=== PATIENT | female | born 1955 | race Caucasian/White ===

== ENCOUNTER → 2016-08-26 | Outpatient (CLI) | payer BC ==
[~2016-08-26] MED LIST: CALTRATE 600 +1 TAB PO; MVI PO; TOPAMAX50 MG PO; [UNRECOGNIZED DRUG - OTHER] PO
== END ==
LOC: MC.RAD 09:15
DX: Z12.31 Encounter for screening mammogram for malignant neoplasm of breast (principal); N63 Unspecified lump in breast

== ENCOUNTER → 2016-08-27 | Outpatient (CLI) | payer BC | LOC: MC.RAD 08:00 | DX: D24.1 Benign neoplasm of right breast (principal) ==

== ENCOUNTER → 2017-03-10 | Outpatient (CLI) | payer BC | LOC: COL.RAD 10:58 | DX: M48.07 Spinal stenosis, lumbosacral region (principal); M43.9 Deforming dorsopathy, unspecified ==

== ENCOUNTER → 2017-09-22 | Outpatient (CLI) | payer BC | LOC: MC.RAD 09:48 | DX: Z12.31 Encounter for screening mammogram for malignant neoplasm of breast (principal) ==

== ENCOUNTER → 2018-11-05 | Outpatient (CLI) | payer BC | LOC: MC.RAD 11:11 | DX: Z12.31 Encounter for screening mammogram for malignant neoplasm of breast (principal); Z98.82 Breast implant status ==

== ENCOUNTER → 2020-01-31 | Outpatient (CLI) | payer BC | LOC: MC.RAD 12:45 | DX: Z12.31 Encounter for screening mammogram for malignant neoplasm of breast (principal); Z98.82 Breast implant status ==

== ENCOUNTER → 2021-02-15 | Outpatient (CLI) | payer MEDICARE ==
[~2021-02-15] MED LIST changes: +00186-0370-20 IH; +ASPIRIN E.C. 8181 MG PO; +B-12 500 MCG PO; +CRESTOR5 MG PO; +CYMBALTA 60MG60 MG PO; +DESYREL 100MG100 MG PO; +ESTRACE0.1 MG/GM VG; +FIORICET 325 MG1 TA1 PO; +FLOMAX 0.40.4 MG/CAP PO; +FLONASEALLERGY NS; +MASON NATURAL2000 IU PO; +NATURAL IRON65 MG PO; +NEURONTIN300 MG/CAP PO; +PEPCID 20MG TAB20 MG PO; +PROAIR HFA0.09 MG/AC IH; +SINGULAIR 110 MG/TAB PO; +TOPAMAX 100MG100 M1 PO; +UBRELVY50 MG PO; +VOLTAREN GEL 1%1 TU TP; +ZANAFLEX2 MG PO; +ZYRTEC 10MG10 MG PO
== END ==
LOC: MC.RAD 01-30 09:45
DX: Z12.31 Encounter for screening mammogram for malignant neoplasm of breast (principal); N63.20 Unspecified lump in the left breast, unspecified quadrant

== ENCOUNTER → 2021-02-21 | Outpatient (CLI) | payer MEDICARE | LOC: MC.RAD 14:00 | DX: N60.02 Solitary cyst of left breast (principal); N63.20 Unspecified lump in the left breast, unspecified quadrant ==

== ENCOUNTER 2021-05-07 14:43 | Outpatient (CLI) | payer MEDICARE ==
[~2021-05-07] VITALS: Ht 162.6 cm; Wt 55.9 kg
[~2021-05-07 14:43] MED LIST changes: -00186-0370-20 IH; -ASPIRIN E.C. 8181 MG PO; -B-12 500 MCG PO; -CRESTOR5 MG PO; -CYMBALTA 60MG60 MG PO; -DESYREL 100MG100 MG PO; -ESTRACE0.1 MG/GM VG; -FIORICET 325 MG1 TA1 PO; -FLOMAX 0.40.4 MG/CAP PO; -FLONASEALLERGY NS; -MASON NATURAL2000 IU PO; -NATURAL IRON65 MG PO; -NEURONTIN300 MG/CAP PO; -PEPCID 20MG TAB20 MG PO; -PROAIR HFA0.09 MG/AC IH; -SINGULAIR 110 MG/TAB PO; -TOPAMAX 100MG100 M1 PO; -UBRELVY50 MG PO; -VOLTAREN GEL 1%1 TU TP; -ZANAFLEX2 MG PO; -ZYRTEC 10MG10 MG PO
[2021-05-07 15:01] VITALS: BP 116/68; PULSE 75; TEMP 98
[2021-05-07] MEDS ORDERED: 00186-0370-20 IH (15:31)
[2021-05-07] MEDS ORDERED: NEURONTIN300 MG/CAP PO (15:32)
[2021-05-07] MEDS ORDERED: TOPAMAX 100MG100 M1 PO (15:33)
[2021-05-07] MEDS ORDERED: CYMBALTA 60MG60 MG PO (15:40)
[2021-05-07] MEDS ORDERED: SINGULAIR 110 MG/TAB PO (15:41)
[2021-05-07] MEDS ORDERED: B-12 500 MCG PO (15:42)
[2021-05-07] MEDS ORDERED: NATURAL IRON65 MG PO (15:42)
[2021-05-07] MEDS ORDERED: ZYRTEC 10MG10 MG PO (15:44)
[2021-05-07] MEDS ORDERED: ASPIRIN E.C. 8181 MG PO (15:45)
[2021-05-07] MEDS ORDERED: PEPCID 20MG TAB20 MG PO (15:46)
[2021-05-07] MEDS ORDERED: FLONASEALLERGY NS (15:46)
[2021-05-07] MEDS ORDERED: FLOMAX 0.40.4 MG/CAP PO (15:47)
[2021-05-07] MEDS ORDERED: ESTRACE0.1 MG/GM VG (15:48)
[2021-05-07] MEDS ORDERED: PROAIR HFA0.09 MG/AC IH (15:48)
[2021-05-07] MEDS ORDERED: VOLTAREN GEL 1%1 TU TP (15:49)
[2021-05-07] MEDS ORDERED: FIORICET 325 MG1 TA1 PO (15:49)
[2021-05-07] MEDS ORDERED: UBRELVY50 MG PO (15:50)
[2021-05-07] MEDS ORDERED: ZANAFLEX2 MG PO (15:50)
[2021-05-07] MEDS ORDERED: MASON NATURAL2000 IU PO (15:51)
[2021-05-07] MEDS ORDERED: CRESTOR5 MG PO (15:52)
[2021-05-07] MEDS ORDERED: DESYREL 100MG100 MG PO (15:52)
== END 2021-05-07 16:10 | disposition home or self-care (01) ==
LOC: EUO 14:43
DX: M81.0 Age-related osteoporosis without current pathological fracture (principal)
CPT/HCPCS: J3489

== ENCOUNTER 2022-01-10 20:02 | Inpatient (IN) | payer MEDICARE ==
[~2022-01-10] VITALS: Ht 162.6 cm; Wt 66.0 kg
[~2022-01-10 20:02] MED LIST changes: +00186-0370-20 IH; +ASPIRIN E.C. 8181 MG PO; +B-12 500 MCG PO; +CRESTOR5 MG PO; +CYMBALTA 60MG60 MG PO; +DESYREL 100MG100 MG PO; +ESTRACE0.1 MG/GM VG; +FIORICET 325 MG1 TA1 PO; +FLOMAX 0.40.4 MG/CAP PO; +FLONASEALLERGY NS; +MASON NATURAL2000 IU PO; +NATURAL IRON65 MG PO; +NEURONTIN300 MG/CAP PO; +PEPCID 20MG TAB20 MG PO; +PROAIR HFA0.09 MG/AC IH; +SINGULAIR 110 MG/TAB PO; +TOPAMAX 100MG100 M1 PO; +UBRELVY50 MG PO; +VOLTAREN GEL 1%1 TU TP; +ZANAFLEX2 MG PO; +ZYRTEC 10MG10 MG PO
[2022-01-10] MEDS ORDERED: NEURONTIN300 MG/CAP PO (20:28)
[2022-01-10] MEDS ORDERED: TOPAMAX 100MG100 M1 PO (20:29)
[2022-01-10] MEDS ORDERED: CYMBALTA 60MG60 MG PO (20:29)
[2022-01-10] MEDS ORDERED: NEURONTIN600 MG/TAB PO (20:29)
[2022-01-10] MEDS ORDERED: UBRELVY50 MG PO (21:19)
[2022-01-10 21:30] LABS: COLLECTION METHOD CLEAN CATCH
[2022-01-10 21:38] LABS: MUCOUS Present (NOT PRESENT); PH 7 (5-8); URINE APPEARANCE Hazy (CLEAR/HAZY); URINE BACTERIA None Seen /hpf (NONE SEEN); URINE BILIRUBIN Negative (NEGATIVE); URINE BLOOD Negative (NEGATIVE); URINE COLOR Yellow (YELLOW); URINE GLUCOSE Negative (NEGATIVE); URINE KETONE 1+ (NEGATIVE); URINE LEUKOCYTE ESTERASE Negative (NEGATIVE); URINE NITRATE Negative (NEGATIVE); URINE PROTEIN(semi-quant) Negative (NEGATIVE); URINE RBC 0-2 /hpf (0-2); URINE UROBILINOGEN Negative (NEGATIVE)
[2022-01-10 21:39] LABS: BASO % 0.3 % (0.0-2.0); EOS # 0.1 K/mm3 (0.0-0.7); EOS % 0.7 % (0.0-4.0); GRAN # 12.2 K/mm3 (1.4-6.5); GRAN % 83.9 % (42.2-75.2); LYMPH # 0.9 K/mm3 (1.2-3.4); MEAN CELL VOLUME 103 fl (80.0-100.0); MEAN CORPUSCULAR HEMOGLOBIN 33 pg (27-31); MEAN CORPUSCULAR HGB CONC 32 g/dl (33.0-37.0); MEAN PLATELET VOLUME 9.3 fl (7.4-10.4); MONO # 1.2 K/mm3 (0.1-0.6); MONO % 8.3 % (1.7-9.3); PLATELET COUNT 348 K/mm3 (130-400); REDCELL DISTRIBUTION WIDTH-CV 12.9 % (11.5-14.5)
[2022-01-10 21:50] LABS: ALANINE AMINOTRANSFERASE 37 U/L (0-55); ALBUMIN 3.3 gm/dL (3.4-4.8); ALKALINE PHOSPHATASE 49 U/L (40-150); ANION GAP 13 mmol/L (7-16); AST,SGOT 25 U/L (5-34); BILIRUBIN,TOTAL 0.3 mg/dL (0.2-1.2); BLOOD UREA NITROGEN 12 mg/dL (10-20); C-REACTIVE PROTEIN 6.12 mg/dL (0.00-0.50); CALCIUM 8.5 mg/dL (8.4-10.2); CARBON DIOXIDE 20 mmol/L (23-31); CHLORIDE 103 mmol/L (98-107); CREATININE, serum 0.73 mg/dL (0.57-1.11); GLUCOSE 132 mg/dL (70-99); POTASSIUM 4.1 mmol/L (3.5-4.5); SODIUM 136 mmol/L (136-145); TOTAL PROTEIN 6.6 gm/dL (6.2-8.1)
[2022-01-10 21:58] LABS: TROPONIN-I < 0.010 ng/mL (0.00-0.033)
[2022-01-10] MEDS ORDERED: CALCIUM WITH D31 CTB PO (22:07)
[2022-01-11] VITALS (755 sets, daily range): BP systolic 99–117; BP diastolic 55–82; PULSE 75–89; TEMP 98.2–99.8; O2SAT 50–100
[2022-01-11] MEDS ORDERED: VOLTAREN GEL 1%1 TU TP (00:36)
[2022-01-11 04:17] LABS: INR 1.3 (0.8-3.0)
[2022-01-11 07:29] LABS: BASO % 0.1 % (0.0-2.0); EOS % 0.1 % (0.0-4.0); GRAN # 11.4 K/mm3 (1.4-6.5); GRAN % 81.5 % (42.2-75.2); LYMPH # 1.4 K/mm3 (1.2-3.4); MEAN CELL VOLUME 102 fl (80.0-100.0); MEAN CORPUSCULAR HGB CONC 33 g/dl (33.0-37.0); MEAN PLATELET VOLUME 8.9 fl (7.4-10.4); MONO # 1.1 K/mm3 (0.1-0.6); MONO % 7.5 % (1.7-9.3); PLATELET COUNT 269 K/mm3 (130-400); RED BLOOD COUNT 2.79 M/mm3 (4.10-5.30)
[2022-01-11 07:31] LABS: HEMATOCRIT 28.5 % (37.0-47.0); HEMOGLOBIN 9.3 g/dl (12.5-16.0); MEAN CORPUSCULAR HEMOGLOBIN 33 pg (27-31)
[2022-01-11 08:09] LABS: ALBUMIN 2.6 gm/dL (3.4-4.8); BILIRUBIN,TOTAL 0.4 mg/dL (0.2-1.2); CALCIUM 7.5 mg/dL (8.4-10.2); CREATININE, serum 0.66 mg/dL (0.57-1.11); POTASSIUM 3.4 mmol/L (3.5-4.5); TOTAL PROTEIN 5.1 gm/dL (6.2-8.1)
[2022-01-12] VITALS (199 sets, daily range): BP systolic 112–121; BP diastolic 50–62; PULSE 76–86; TEMP 97.5–99.1; O2SAT 86–100
[2022-01-12 04:47] LABS: BASO % 0.2 % (0.0-2.0); EOS # 0.1 K/mm3 (0.0-0.7); EOS % 1.1 % (0.0-4.0); GRAN # 9.4 K/mm3 (1.4-6.5); GRAN % 83.3 % (42.2-75.2); LYMPH # 0.9 K/mm3 (1.2-3.4); LYMPH % 7.6 % (20.0-51.0); MEAN CELL VOLUME 104 fl (80.0-100.0); MEAN CORPUSCULAR HGB CONC 32 g/dl (33.0-37.0); MEAN PLATELET VOLUME 9.1 fl (7.4-10.4); MONO # 0.9 K/mm3 (0.1-0.6); MONO % 7.5 % (1.7-9.3); PLATELET COUNT 298 K/mm3 (130-400); RED BLOOD COUNT 2.69 M/mm3 (4.10-5.30); REDCELL DISTRIBUTION WIDTH-CV 13.2 % (11.5-14.5)
[2022-01-12 04:57] LABS: MEAN CORPUSCULAR HEMOGLOBIN 33 pg (27-31)
[2022-01-12 05:07] LABS: ALBUMIN 2.4 gm/dL (3.4-4.8); BILIRUBIN,TOTAL 0.3 mg/dL (0.2-1.2); CALCIUM 7.8 mg/dL (8.4-10.2); CREATININE, serum 0.64 mg/dL (0.57-1.11); POTASSIUM 3.4 mmol/L (3.5-4.5); TOTAL PROTEIN 5.2 gm/dL (6.2-8.1)
[2022-01-13 00:32] VITALS: BP 120/92; PULSE 81; TEMP 98.2
[2022-01-13 03:25] VITALS: BP 107/50; PULSE 73; TEMP 99
[2022-01-13 05:57] LABS: BASO % 0.2 % (0.0-2.0); EOS # 0.2 K/mm3 (0.0-0.7); GRAN # 8.3 K/mm3 (1.4-6.5); GRAN % 84.9 % (42.2-75.2); LYMPH # 0.6 K/mm3 (1.2-3.4); MEAN CELL VOLUME 105 fl (80.0-100.0); MEAN CORPUSCULAR HGB CONC 32 g/dl (33.0-37.0); MEAN PLATELET VOLUME 9.3 fl (7.4-10.4); MONO # 0.6 K/mm3 (0.1-0.6); MONO % 6.5 % (1.7-9.3); PLATELET COUNT 315 K/mm3 (130-400); RED BLOOD COUNT 2.68 M/mm3 (4.10-5.30); REDCELL DISTRIBUTION WIDTH-CV 13.2 % (11.5-14.5)
[2022-01-13 06:20] LABS: HEMATOCRIT 28.1 % (37.0-47.0); MEAN CORPUSCULAR HEMOGLOBIN 34 pg (27-31)
[2022-01-13 06:25] LABS: ALBUMIN 2.5 gm/dL (3.4-4.8); BILIRUBIN,TOTAL 0.3 mg/dL (0.2-1.2); CALCIUM 8.1 mg/dL (8.4-10.2); CREATININE, serum 0.6 mg/dL (0.57-1.11); POTASSIUM 3.7 mmol/L (3.5-4.5); TOTAL PROTEIN 5.3 gm/dL (6.2-8.1)
[2022-01-13 08:17] VITALS: BP 119/54; PULSE 85; TEMP 98
[2022-01-13 12:13] VITALS: BP 112/51; PULSE 70; TEMP 97.9
[2022-01-13 16:50] VITALS: BP 108/51; PULSE 77; TEMP 98.1
[2022-01-13 21:09] VITALS: BP 110/53; PULSE 78; TEMP 98.8
[2022-01-14 00:14] VITALS: BP 106/49; PULSE 84; TEMP 97.8
[2022-01-14 05:07] VITALS: BP 110/53; PULSE 75; TEMP 98
[2022-01-14 07:31] VITALS: BP 105/52; PULSE 88; TEMP 98.5
[2022-01-14 11:37] VITALS: BP 105/54; PULSE 63; TEMP 98.3
[2022-01-14 15:29] VITALS: BP 110/53; PULSE 92; TEMP 98.4
== END 2022-01-14 19:41 | disposition short-term general hospital (02) | DRG 862 ==
LOC: COL.ER 20:02 → ICU 01-11 03:30 → MEDICAL 01-12 10:39
PROVIDERS: Nurse Practitioner; Nurse Practitioner Family; ADMIT Student in an Organized Health Care Education/Training Program
PROC: 02HV33Z Insertion of Infusion Device into Superior Vena Cava, Percutaneous Approach (ICD-10-PCS; principal; 2022-01-11)
DX: T81.40XA Infection following a procedure, unspecified, initial encounter (principal); A41.9 Sepsis, unspecified organism; J86.9 Pyothorax without fistula; I77.71 Dissection of carotid artery; R65.20 Severe sepsis without septic shock; E87.2 Acidosis; J95.89 Other postprocedural complications and disorders of respiratory system, not elsewhere classified; T81.44XA Sepsis following a procedure, initial encounter; K21.9 Gastro-esophageal reflux disease without esophagitis; E78.5 Hyperlipidemia, unspecified; F41.9 Anxiety disorder, unspecified; G43.909 Migraine, unspecified, not intractable, without status migrainosus; R73.9 Hyperglycemia, unspecified; D64.9 Anemia, unspecified; J43.9 Emphysema, unspecified; I34.1 Nonrheumatic mitral (valve) prolapse; I45.4 Nonspecific intraventricular block; R13.10 Dysphagia, unspecified; Y83.8 Other surgical procedures as the cause of abnormal reaction of the patient, or of later complication, without mention of misadventure at the time of the procedure; R19.7 Diarrhea, unspecified; Z88.2 Allergy status to sulfonamides; Z79.82 Long term (current) use of aspirin; Z23 Encounter for immunization
CPT/HCPCS: 99223-AI; 99232-AI; 99233-AI; 99239; C1751; J1650; J2270; J2405; J2543; J3370; J7030; J7050; Q9967

== ENCOUNTER → 2022-11-11 | Outpatient (CLI) | payer MEDICARE ==
[~2022-11-11] MED LIST changes: +CALCIUM WITH D31 CTB PO; +MELATONIN5 M1 SL; +NEURONTIN600 MG/TAB PO
== END ==
LOC: COL.RAD 13:30
DX: D17.24 Benign lipomatous neoplasm of skin and subcutaneous tissue of left leg (principal); D17.23 Benign lipomatous neoplasm of skin and subcutaneous tissue of right leg

== ENCOUNTER 2023-08-25 12:12 | Outpatient (CLI) | payer MEDICARE ==
[~2023-08-25] VITALS: Ht 162.6 cm; Wt 58.8 kg
[2023-08-25 12:43] VITALS: BP 102/70; PULSE 83; TEMP 98.1
[2023-08-25] MEDS ORDERED: SINGULAIR 110 MG/TAB PO (13:06)
[2023-08-25] MEDS ORDERED: VITAMIN C500 MG PO (13:08)
[2023-08-25] MEDS ORDERED: FIORICET 325 MG1 TA1 PO (13:18)
[2023-08-25] MEDS ORDERED: TYLENOL 500MG500 MG PO (13:18)
[2023-08-25] MEDS ORDERED: [UNRECOGNIZED DRUG - OTHER] PO (13:19)
[2023-08-25] MEDS ORDERED: VOLTAREN GEL 1%1 TU TP (13:19)
[2023-08-25] MEDS ORDERED: ESTRACE0.1 MG/GM VG (13:20)
[2023-08-25] MEDS ORDERED: CRESTOR5 MG PO (13:21)
== END 2023-08-25 13:21 ==
LOC: EUO 12:12
DX: M81.8 Other osteoporosis without current pathological fracture (principal)
CPT/HCPCS: J3489

== ENCOUNTER → 2023-10-07 | Outpatient (CLI) | payer MEDICARE, OTHER ==
[~2023-10-07] MED LIST changes: +TYLENOL 500MG500 MG PO; +VITAMIN C500 MG PO; +[UNRECOGNIZED DRUG - OTHER] PO
== END ==
LOC: MC.RAD 10:27
DX: Z12.31 Encounter for screening mammogram for malignant neoplasm of breast (principal)

== ENCOUNTER → 2024-04-08 | Outpatient (CLI) | payer MEDICARE, OTHER | LOC: COL.RAD 13:24 | DX: M41.86 Other forms of scoliosis, lumbar region (principal); N20.0 Calculus of kidney ==